=== PATIENT | male | born 1960 | race Caucasian/White ===

== ENCOUNTER 2017-04-24 08:53 | Inpatient (IN) | payer OTHER ==
[~2017-04-24] VITALS: Ht 175.3 cm; Wt 62.6 kg
[2017-04-24 10:02] LABS: BASOPHIL % 0.7 % (0-2); PLATELET COUNT 274 x10^3mcL (130-400); RED CELL DISTRIBUTION WIDTH 12.5 % (11.5-14.5)
[2017-04-24 10:04] LABS: microscopic required? YES; urine erythrocyte NEGATIVE (NEGATIVE)
[2017-04-24 10:31] LABS: ALKALINE PHOSPHATASE 144 U/L (46-116); ALT/SGPT 27 U/L (16-63); AST/SGOT 25 U/L (15-37); BILIRUBIN TOTAL 0.6 mg/dL (0.20-1.00); CALCIUM 9.8 mg/dL (8.5-10.1); CARBON DIOXIDE 26.9 mmol/L (21-32); CHLORIDE SERUM 95 mmol/L (98-107); CREATININE SERUM 0.7 mg/dL (0.7-1.3); GFR1 > 60 mL/min; GLUCOSE SERUM 304 mg/dL (74-106); LIPASE 112 IU/L (73-393); POTASSIUM SERUM 3.4 mmol/L (3.5-5.1); SODIUM SERUM 133 mmol/L (136-145); TOTAL PROTEIN, SERUM 8.2 g/dL (6.4-8.2)
[2017-04-24] MEDS ORDERED: GLUCOPHAGE XR500 MG (11:30)
[2017-04-24 11:50] LABS: MAGNESIUM 1.6 mg/dL (1.8-2.4); PHOSPHOROUS 3.2 mg/dL (2.5-4.9)
[2017-04-24 11:51] LABS: CHOLESTEROL/HDL RATIO 4.9
[2017-04-24 11:59] LABS: T3 TOTAL 1.55 ng/mL
[2017-04-24 12:04] LABS: FREE T4 1.61 ng/dL (0.76-1.46); FREE THYROXINE INDEX 4.1 ug/dL (1.4-4.5); T4(THYROXINE) 11.6 ug/dL (4.7-13.3)
[2017-04-24 12:32] LABS: AMPHETAMINE QUAL UR NONE DETECTED (NEG <=1000)
[2017-04-24 13:09] VITALS: BP 150/84
[2017-04-24] MEDS ORDERED: METFORMIN HCL1000 MG PO (13:09)
[2017-04-24] MEDS ORDERED: GEMFIBROZIL600 MG PO (13:10)
[2017-04-24 21:32] VITALS: BP 157/82
[2017-04-25 06:53] VITALS: BP 131/72
[2017-04-25 06:57] LABS: BASOPHIL % 0.3 % (0-2); PLATELET COUNT 255 x10^3mcL (130-400); RED CELL DISTRIBUTION WIDTH 12.9 % (11.5-14.5)
[2017-04-25 08:00] LABS: CALCIUM 9.3 mg/dL (8.5-10.1); CARBON DIOXIDE 26.5 mmol/L (21-32); CHLORIDE SERUM 100 mmol/L (98-107); CREATININE SERUM 0.6 mg/dL (0.7-1.3); GFR1 > 60 mL/min; GLUCOSE SERUM 185 mg/dL (74-106); MAGNESIUM 1.6 mg/dL (1.8-2.4); PHOSPHOROUS 3.8 mg/dL (2.5-4.9); POTASSIUM SERUM 3.8 mmol/L (3.5-5.1); SODIUM SERUM 137 mmol/L (136-145)
[2017-04-25 09:23] VITALS: BP 139/82
[2017-04-25 21:29] VITALS: BP 133/78
[2017-04-26 06:01] VITALS: BP 119/75
[2017-04-26 06:31] LABS: CALCIUM 9.2 mg/dL (8.5-10.1); CARBON DIOXIDE 24.7 mmol/L (21-32); CHLORIDE SERUM 103 mmol/L (98-107); CREATININE SERUM 0.5 mg/dL (0.7-1.3); GFR1 > 60 mL/min; GLUCOSE SERUM 198 mg/dL (74-106); MAGNESIUM 1.5 mg/dL (1.8-2.4); POTASSIUM SERUM 3.7 mmol/L (3.5-5.1); SODIUM SERUM 139 mmol/L (136-145)
[2017-04-26 10:38] VITALS: BP 102/67
[2017-04-26 13:12] VITALS: BP 102/67
[2017-04-26 13:41] VITALS: BP 144/75
[2017-04-26] MEDS ORDERED: LEXAPRO10 MG PO (14:54)
[2017-04-26] MEDS ORDERED: GLU5 PO (14:56)
[2017-04-26] MEDS ORDERED: PROTONIX40 MG PO (14:57)
[2017-04-26] MEDS ORDERED: ZES10 PO (14:58)
== END 2017-04-26 16:20 | disposition home or self-care (01) | DRG 383 ==
LOC: ED 08:53 → DU 10:52 → MU 10:52 → DU 12:32
PROVIDERS: Emergency Medicine; Internal Medicine Gastroenterology; ADMIT Family Medicine
PROC: 0DB68ZX Excision of Stomach, Via Natural or Artificial Opening Endoscopic, Diagnostic (ICD-10-PCS; principal; 2017-04-26 09:30)
DX: K26.3 Acute duodenal ulcer without hemorrhage or perforation (principal); N17.0 Acute kidney failure with tubular necrosis; D68.69 Other thrombophilia; K26.7 Chronic duodenal ulcer without hemorrhage or perforation; K44.9 Diaphragmatic hernia without obstruction or gangrene; E11.40 Type 2 diabetes mellitus with diabetic neuropathy, unspecified; E11.59 Type 2 diabetes mellitus with other circulatory complications; E11.65 Type 2 diabetes mellitus with hyperglycemia; E86.0 Dehydration; E87.6 Hypokalemia; E83.42 Hypomagnesemia; F32.9 Major depressive disorder, single episode, unspecified; E78.2 Mixed hyperlipidemia; F12.10 Cannabis abuse, uncomplicated; F13.10 Sedative, hypnotic or anxiolytic abuse, uncomplicated; Z87.891 Personal history of nicotine dependence; Z85.820 Personal history of malignant melanoma of skin; Z79.84 Long term (current) use of oral hypoglycemic drugs
CPT/HCPCS: 43235; 83880; 84439; J1200; J1610; J1885; J2250; J2310; J2405; J3010; J3475; J3480; J3490; J7030; Q0092; Q0163